=== PATIENT | female | born 1990 | race African-American/Black ===

== ENCOUNTER 2018-05-15 07:59 | Emergency (ER) | END 2018-05-15 09:36 | disposition home or self-care (01) ==

== ENCOUNTER 2019-03-28 11:42 | Emergency (ER) | payer OTHER ==
[~2019-03-28] VITALS: Ht 167.6 cm; Wt 74.7 kg
[~2019-03-28 11:42] MED LIST: BEN50 PO; CYCL10TA7 PO; FAMO-96 PO; NAPR-985 PO; PRED20TA PO
[2019-03-28 11:45] VITALS: BP 146/71; PULSE 82; RESP 18; Ht 167.6 cm; Wt 74.7 kg
[2019-03-28] MEDS ORDERED: IBUPROFEN 800 MG TAB PO ONE (12:30)
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
== END 2019-03-28 12:38 | disposition home or self-care (01) ==
LOC: FTE 11:42
DX: M54.2 Cervicalgia (principal); M54.9 Dorsalgia, unspecified
CPT/HCPCS: 99283